=== PATIENT | female | born 1960 | race African-American/Black ===

== ENCOUNTER 2017-12-26 15:49 | Emergency (ER) | payer SELFPAY ==
[2017-12-26 16:06] VITALS: BP 149/92
--- NOTE | 2017-12-26 16:17 | ER Document Report ---
HPI - HPI Patient complains to provider of: Fall in [employer] [place] Onset: Just prior to arrival Onset/Duration: Sudden Pain Level: 4 Context: 57-year-old female fell forward after tripping in the [employer] [place] onto the floor. She fell on her knees and both of her elbows. She is complaining of soreness in the left superior shoulder and neck both of her elbows and knees. She does not think anything is broken. She states she does not need any x-rays that were offered. Associated Symptoms: None Exacerbated by: Movement Relieved by: Denies Similar symptoms previously: No Recently seen / treated by doctor: No - ROS ROS below otherwise negative: Yes Systems Reviewed and Negative: Yes All other systems reviewed and negative Past Medical History - General Information source: Patient - Social History Smoking Status: Never Smoker Lives with: Spouse/Significant other Family History: Reviewed & Not Pertinent - Medical History Medical History: Negative Surgical Hx: Negative Vertical Provider Document - CONSTITUTIONAL Agree With Documented VS: Yes Exam Limitations: No Limitations - INFECTION CONTROL TRAVEL OUTSIDE OF THE [place] IN LAST 30 DAYS: No - NECK Neck: Supple - Nontender C-spine, no axial load tenderness Notes: Tender left trapezius muscle - RESPIRATORY Respiratory: Breath Sounds Normal, No Respiratory Distress - CARDIOVASCULAR Cardiovascular: Regular Rate, Regular Rhythm - MUSCULOSKELETAL/EXTREMETIES Musculoskeletal/Extremeties: MAEW, FROM, Non-Tender - Bilateral olecranon and bilateral knees are nontender with full range of motion, No Edema - NEURO Level of Consciousness: Alert Motor/Sensory: No Motor Deficit, No Sensory Deficit Course - Vital Signs Vital signs: Temp Pulse Resp BP Pulse Ox 98.5 F 86 14 149/92 H 96 12/26/17 16:04 12/26/17 16:04 12/26/17 16:04 12/26/17 16:04 12/26/17 16:04 Discharge - Discharge Clinical Impression: Bilateral knee contusion, Bilateral elbow contusion, left trapezius muscle strain Fall Qualifiers: Encounter type: initial encounter Qualified Code(s): W19.XXXA - Unspecified fall, initial encounter Condition: Good Disposition: HOME, SELF-CARE Instructions: Acetaminophen, Anti-Inflammatory Medication ([facility]), Contusion ([facility] ), Muscle Relaxers ([facility]), Muscle Strain ([facility]) Additional Instructions: warm compress to sore areas tylenol up to 4000 mg a day for pain Motrin up to 3 times a day for inflammation Return to the emergency room any concerns or worsening of the symptoms Prescriptions: Ibuprofen [Motrin 600 mg Tablet] 600 mg PO Q8HP PRN #30 tablet PRN Reason: Cyclobenzaprine HCl [Flexeril 10 Mg Tablet] 10 mg PO TIDP PRN #20 tablet PRN Reason:
== END 2017-12-26 16:52 | disposition home or self-care (01) ==
LOC: ER 15:49
DX: S80.02XA Contusion of left knee, initial encounter (principal); S80.01XA Contusion of right knee, initial encounter; S50.02XA Contusion of left elbow, initial encounter; S50.01XA Contusion of right elbow, initial encounter; S29.012A Strain of muscle and tendon of back wall of thorax, initial encounter; M25.512 Pain in left shoulder; M54.2 Cervicalgia; M25.522 Pain in left elbow; M25.521 Pain in right elbow; M25.561 Pain in right knee; M25.562 Pain in left knee; W19.XXXA Unspecified fall, initial encounter; Y92.511 Restaurant or cafe as the place of occurrence of the external cause
CPT/HCPCS: 99283